=== PATIENT | female | born 1995 | race Caucasian/White ===

== ENCOUNTER 2023-09-09 18:45 | Emergency (ER) | payer BC ==
[~2023-09-09 18:45] MED LIST: Iopamidol 300 61% 100 ML VIAL FS ONE
[2023-09-09 19:35] LABS: #Basophils 0.02 10x3/uL (0.0-0.2); #Eosinphils 0.14 10x3/uL (0.0-0.5); #Monocytes 0.42 10x3/uL (0.0-1.1); %Basophils 0.3 % (0.0-2.0); %Eosinophils 2.1 % (0.0-6.0); %Lymphocytes 25.9 % (18.0-47.0); %Monocytes 6.4 % (0.0-10.0); %Neutrophils 65.1 % (40.0-75.0); Hematocrit 37.1 % (34.9-44.5); Hemoglobin 12.3 g/dL (12.0-15.5); Mean Corpuscular HGB CONC 33.2 g/dL (32.0-36.0); Mean Corpuscular Volume 81.4 fL (81.6-98.3); Mean Platelet Volume 9.4 fL (7.4-10.4); Platelet Count 290 10x3/uL (150-450); RBC Distribution Width 13.6 % (11.5-14.5); Red Blood Cell (RBC) Count 4.56 10x6/uL (3.90-5.03); White Blood Cell (WBC) Count 6.6 10x3/uL (3.5-10.5)
[2023-09-09 19:48] LABS: ALT (SGPT) 13 U/L (8-55); AST (SGOT) 15 U/L (5-34); Albumin 3.6 g/dL (3.5-5.0); Alkaline Phosphatase 66 U/L (40-110); Anion Gap 12 mmol/L (10-20); BUN (Urea Nitrogen) 16 mg/dL (7.0-18.7); Bilirubin, Total 0.2 mg/dL (0.2-1.2); Calc. Creatinine Clearance 0 mL/min (70-130); Carbon Dioxide 24 mmol/L (22-29); Chloride 106 mmol/L (98-107); Estimated GFR 92; Globulin 3.5 g/dL (2.4-3.5); Glucose 97 mg/dL (70-105); Lipase 18 U/L (8-78); Protein, Total 7.1 g/dL (6.0-8.3); Sodium 138 mmol/L (136-145)
== END 2023-09-09 21:34 | disposition home or self-care (01) ==
LOC: CSHERS 18:45
DX: R19.00 Intra-abdominal and pelvic swelling, mass and lump, unspecified site (principal); Z55.6 Problems related to health literacy
CPT/HCPCS: 36415; 74177; 80053; 83690; 85025; Q9967